=== PATIENT | female | born 1955 ===

== ENCOUNTER → 2024-07-09 | Outpatient (CLI) | payer MEDICARE, BC ==
--- NOTE | 2024-07-13 13:37 | DVHSR ---
APPROVED REPORT EXAM: Two-dimensional and M-mode echocardiogram with Doppler and color Doppler. DIMENSIONS LVDd4.1 (3.8-5.7cm)LA (2D)3.5 (1.9-4.0cm)Aortic Root3.0 (2.0-3.7cm) LVDs2.9 (2.5-4.0cm)LA (MM) (1.9-4.0cm)Aortic Cusp Exc1.7 (1.5-2.0cm) EF (%) 57.0 (55-70%)Rt. Atrium3.7 (1.9-4.0cm)Asc. Aorta3.1 cm IVSd1.0 (0.7-1.1cm)RV (D) (1.8-2.4cm) PWd1.1 (0.7-1.1cm) Mitral Valve MitralMitral Stenosis E wave0.90m/sMV Mean GR.mmHg A wave1.30m/sMV Peak GR.mmHg E/A ratio0.72D MVAcm2 Aortic Valve Aortic ValveAortic Stenosis V11.00m/Bi Mean GR.4mmHg V21.40m/Bi Peak GR.9mmHg LVOT Diameter2.0 (1.8-2.4cm)Doppler AVA2.24cm2 AI P 1/2 Flur987.87ms Pulmonic Valve V20.80m/s LEFT VENTRICLE The left ventricle is normal size. The left ventricle is normal in structure and function. The Ejection Fraction is within normal limits. RIGHT VENTRICLE The right ventricle is normal size. ATRIA The left atrial size is normal. The right atrium size is normal. The interatrial septum is intact with no evidence for an atrial septal defect. MITRAL VALVE The mitral valve is normal in structure. There is no mitral valve regurgitation noted. PULMONIC VALVE The pulmonic valve is not well visualized. TRICUSPID VALVE The tricuspid valve is grossly normal. AORTIC VALVE The aortic valve opens well. There is trace to mild aortic regurgitation. GREAT VESSELS The aortic root is normal size. PERICARDIAL EFFUSION There is no pericardial effusion. Conclusion EF >55%
== END | disposition home or self-care (01) ==
LOC: Rad HDHVI 08:57
PROVIDERS: ATTEND Internal Medicine Cardiovascular Disease
DX: I35.1 Nonrheumatic aortic (valve) insufficiency (principal); R55 Syncope and collapse
CPT/HCPCS: 93306

== ENCOUNTER → 2024-07-19 | Outpatient (CLI) | payer MEDICARE, BC ==
[~2024-07-19] VITALS: Ht 167.6 cm; Wt 85.3 kg
[~2024-07-19] MED LIST: ADENOSINE 72 MG in GIVE UN-DILUTED 0 ML IV ONE; ADENOSINE 90 MG/30 ML INJ IV ONE
== END | disposition home or self-care (01) ==
LOC: Rad HDHVI 13:14
PROVIDERS: ATTEND Internal Medicine Cardiovascular Disease
DX: R06.02 Shortness of breath (principal); R42 Dizziness and giddiness; E78.00 Pure hypercholesterolemia, unspecified; R55 Syncope and collapse
CPT/HCPCS: 78452; 93005; 96374; 96375; A9500; J0153

== ENCOUNTER → 2024-08-24 | Outpatient (CLI) | payer MEDICARE, BC ==
[~2024-08-24] MED LIST changes: -ADENOSINE 72 MG in GIVE UN-DILUTED 0 ML IV ONE; -ADENOSINE 90 MG/30 ML INJ IV ONE; +CHOL50007 PO; +COEN30CA10 PO; +HEPARIN IN NS 1000Units/500mL 1,500 ML ONE; +IOHEXOL 350 MG/ML 100ML IJ ONE; +LEVO112T2 PO; +MAGN400C3 PO; +METO5TAB67 PO; +PANC1CAP PO; +PANT40TA2 PO; +POM PO; +POTA99TA3 PO; +SENN-58 PO; +THIA100T10 PO; +TRIA37.586 PO; +[UNRECOGNIZED DRUG - CODE] PO
[2024-08-24 08:15] VITALS: BP 118/59; PULSE 87; RESP 16; O2SAT 99
[2024-08-24 09:00] VITALS: BP 112/58; PULSE 82; RESP 16; O2SAT 98
--- NOTE | 2024-08-24 14:41 | DVH ---
XY CHEST TWO VIEWS ROUTINE CLINICAL HISTORY: PRE OP/pain COMPARISON: None TECHNIQUE: Frontal and lateral view of the chest was obtained FINDINGS: Lines and Tubes: None Lungs: No focal consolidation. Pleura: No effusion. No pneumothorax. Cardiomediastinal contours: Unremarkable Bones: No acute osseous abnormality. IMPRESSION: No acute cardiopulmonary disease.
== END | disposition home or self-care (01) ==
LOC: Rad HDHVI 08:48
PROVIDERS: ATTEND Internal Medicine Cardiovascular Disease
DX: Z01.818 Encounter for other preprocedural examination (principal); R06.02 Shortness of breath; I42.9 Cardiomyopathy, unspecified
CPT/HCPCS: 71046; 93005; G0463; 36415; 80048; 85025; 85610; 85730

== ENCOUNTER 2024-08-26 06:34 | Day surgery (SDC) | payer MEDICARE, BC ==
[2024-08-24 13:16] LABS: Basophils # (auto) 0.1 10 ^3/uL (0-0.2); Eosinophils # (auto) 0 10 ^3/uL (0-0.8); Eosinophils % (auto) 0.6 % (0.0-7.0); Hematocrit 37.1 % (36.0-46.0); Hemoglobin 12.4 g/dL (12.2-16.2); Lymphocytes # (auto) 1.7 10 ^3/uL (0.4-5.4); Lymphocytes % (auto) 24.1 % (10.0-50.0); Mean Corpuscular Hemoglobin 27.3 pg (28.0-32.0); Mean Corpuscular Hgb Conc. 33.4 g/dL (32.0-36.0); Mean Corpuscular Volume 81.7 fL (80.0-100.0); Monocytes # (auto) 0.5 10 ^3/uL (0-1.3); Monocytes % (auto) 6.7 % (0.0-12.0); Neutrophils # (auto) 4.9 10 ^3/uL (1.6-8.6); Neutrophils % (auto) 67.6 % (37.0-80.0); Nucleated Red Blood Cells % 0.1 %; Platelet Count (auto) 360 10^3/uL (140-450); Red Blood Cells 4.54 10^6/uL (4.0-5.20); Red Cell Distribution Width 13.4 % (11.8-14.3); White Blood Cell 7.2 10^3/uL (4.4-10.8)
[2024-08-24 13:30] LABS: INR 1.04 (0.9-1.15); Partial Thromboplastin Time 27.3 SEC (24.5-34.5)
[2024-08-24 14:44] LABS: Anion Gap 11 (5-15); Carbon Dioxide 26 mmol/L (20-31); Chloride 103 mmol/L (98-107); Potassium 3.7 mmol/L (3.5-5.1); Sodium 140 mmol/L (136-145)
[2024-08-24 14:50] LABS: BUN/Creatinine Ratio 20.5 (10.0-20.0)
[2024-08-24 14:53] LABS: Blood Urea Nitrogen 25 mg/dL (9-23); Calcium 10.8 mg/dL (8.7-10.4); Glucose 188 mg/dL (74-106)
[~2024-08-26] VITALS: Ht 167.6 cm; Wt 77.6 kg
[2024-08-26] VITALS (8 sets, daily range): BP systolic 95–136; BP diastolic 38–63; PULSE 74–87; RESP 13–19; TEMP 97.7; O2SAT 92–97
[~2024-08-26 06:34] MED LIST changes: -HEPARIN IN NS 1000Units/500mL 1,500 ML ONE; -IOHEXOL 350 MG/ML 100ML IJ ONE
[2024-08-26] MEDS ORDERED: MIDAZOLAM HCL 2MG/2ML 2ml VIAL (1mg/ml) ONE (07:58)
[2024-08-26] MEDS ORDERED: fentaNYL CITRATE 100 MCG/2 ML VL ONE (07:58)
[2024-08-26] MEDS ORDERED: ANGIOMAX 250 MG VIAL IV ONE (07:58)
[2024-08-26] MEDS ORDERED: SODIUM CHL 0.9% 0 ML ONE (07:59)
[2024-08-26] MEDS ORDERED: LIDOCAINE 2%HCL (LOCAL ANESTH.) INJ 20ML MDV ONE (07:59)
--- NOTE | 2024-08-26 08:50 | DVHHP ---
ADMIT DATE: 08/26/2024 HISTORY OF PRESENT ILLNESS: A 68-year-old with history of: * Hypertension, diabetes, diabetic neuropathy, vasculopathy, nephropathy. * Hypothyroidism. * History of hyperthyroidism as well. * History of hypertension. PERTINENT MEDICAL HISTORY: Also significant for severe neuropathy as stated above. She is having increasing symptoms of shortness of breath with history of COPD-like symptoms. FAMILY HISTORY: Significant for grandfather with coronary artery disease. REVIEW OF SYSTEMS: She denied prior LA, history of any angioplasty or angiography. No history of CVA. No history of movement disorder. No history of peripheral vascular disease. No history of chronic COPD. She denies any syncopal episode. No melena or hematochezia. No hematemesis or hemoptysis. No hematuria. No bleeding diathesis. No coagulopathy. The patient is having progressive symptoms of shortness of breath, and because of the above presentation and being diabetic, it is felt that the patient should undergo left heart catheterization and right heart catheterization, to rule out pulmonary hypertension or any valvular abnormality. PHYSICAL EXAMINATION: VITAL SIGNS: Blood pressure is 130/85, pulse of 70 and regular, O2 saturation 98% on room air. HEENT: Pupils are reactive. Funduscopic exam shows no AV nicking, no exudates, no papilledema. Extraocular muscles are intact. Sclerae are anicteric. Tympanic membranes are negative. Oral mucosa moist. Posterior pharynx without any exudate. NECK: No JVD appreciated. Carotid pulses are 2+ symmetrical. Normal upstroke and contour. No cervical adenopathy, no supraclavicular adenopathy, no axillary adenopathy. Thyroid is within normal limits. PULMONARY: Clear to auscultation. Tympanic to percussion. No rhonchi, no wheezes, no egophony. CARDIOVASCULAR: Regular rate. ABDOMEN: Obese. Unable to appreciate an organomegaly. Stool guaiac is negative. NEUROLOGIC: The patient is intact. DTRs are 2+ symmetrical. Cranial nerves 2-12 within normal limits. Sensory and motor modalities are intact. ASSESSMENT AND PLAN: Thus, the patient has increasing symptoms of shortness of breath, dyspnea on exertion. Now to undergo the above-mentioned procedure, left and right heart catheterization. Further recommendations after the angiogram. Chaitanya Dinh MD SA/NAYAN/JOCELYNE TID: [id number] RECEIPT: [id number]
--- NOTE | 2024-08-26 08:51 | DVHDS ---
DATE OF DISCHARGE: 08/26/2024 DISCHARGE DIAGNOSES: * The patient with shortness of breath. Coronary angiography revealed patent coronary anatomy with right coronary artery dominance. * Right heart catheterization and Frankford-Citlalli reading failed to demonstrate any significant hemodynamic abnormality. The patient's capillary wedge pressure was 8. LVEDP was 8. The patient's PA pressure was 31/8. At this time, no evidence of pulmonary hypertension. No evidence of any significant coronary artery disease. Furthermore, the patient's LVEF was also normal at 60%. The patient is stable at the time of discharge. DISPOSITION: Home. ACTIVITY: As instructed. DIET: Will be 2 gram sodium diet. Chaitanya Dinh MD SA/BEVERLY TID: [id number] RECEIPT: [id number]
--- NOTE | 2024-08-26 09:06 | DVHOP ---
DATE OF SURGERY: 08/26/2024 PROCEDURES PERFORMED: * Selective left and right coronary angiography. * Ventriculogram. * Right iliac angiography. * Right heart catheterization. * Durkee-Citlalli reading. * Conscious sedation. DESCRIPTION OF PROCEDURE: The patient was prepped and draped in a sterile condition. 1% Xylocaine used to anesthetize the right groin. Using a Cook needle, the right femoral artery was engaged via Seldinger technique, a 6-Cypriot sheath in the right femoral artery. Similarly, a 6-Cypriot sheath was introduced in the right femoral vein. Using a 6-Cypriot balloon-tipped thermodilutional catheter, right-sided pressure tracings were obtained. Using a 6-Cypriot JL4 catheter and 6-Cypriot JR4 catheter, selective left and right coronary angiographies were performed. Using 6-Cypriot pigtail catheter, ventriculogram was done. There were no complications. The patient tolerated the procedure well. RESULTS: * Left main, patent. * The left anterior descending artery without any flow restrictive lesion, rapidly tapering. Otherwise, no discrete lesion. * Right coronary artery nondominant vessel, less than 2 mm in size. * Right coronary artery is a large, dominant vessel, mild intimal irregularity without any flow restrictive lesion. * Left ventricular function is preserved with an estimated EF 60% with an LVEDP of 8 mmHg with no gradient across the aortic valve. Left ventricular systolic pressure of 130. Right heart catheterization showed RA pressure of 5, RV pressure of 33/5, capillary wedge pressure of 8 and PA pressure of 31/8. Thus, the patient with normal coronary anatomy with right coronary artery dominance with preserved EF of 60%. Right heart catheterization failed to demonstrate any significant pulmonary hypertension. At this time, no gradient was noted between the mitral valve. At this time, no further intervention is required. No catheter-based or surgical intervention is warranted. We will continue to follow the patient. Chaitanya Dinh MD SA/NAYAN TID: [id number] RECEIPT: [id number]
== END 2024-08-26 11:03 | disposition home or self-care (01) ==
LOC: CATH 06:34
PROVIDERS: ATTEND Internal Medicine Cardiovascular Disease
DX: R06.02 Shortness of breath (principal); R06.09 Other forms of dyspnea; I10 Essential (primary) hypertension; E11.40 Type 2 diabetes mellitus with diabetic neuropathy, unspecified; E11.21 Type 2 diabetes mellitus with diabetic nephropathy; E03.9 Hypothyroidism, unspecified; Z87.891 Personal history of nicotine dependence; Z88.5 Allergy status to narcotic agent; Z91.012 Allergy to eggs; Z82.49 Family history of ischemic heart disease and other diseases of the circulatory system
CPT/HCPCS: 36415; 80048; 85025; 85610; 85730; 93460; C1760; C1894; J2250; J3010; J7030; 99152

== ENCOUNTER → 2024-09-15 | Outpatient (CLI) | payer MEDICARE, BC ==
[~2024-09-15] MED LIST changes: +IOHEXOL 350 MG/ML 100ML IJ ONE
[2024-09-15 10:50] VITALS: BP 143/62; PULSE 86; RESP 16; O2SAT 98
[2024-09-15 11:05] VITALS: BP 147/63; PULSE 90; RESP 16; O2SAT 98
--- NOTE | 2024-09-15 17:00 | DVH ---
Procedure: CT CHEST WITH CONTRAST 09/15/2024 10:55 AM History: PULMONARY FIBROSIS Comparison: None Technique: After the uneventful administration of contrast intravenously, CT imaging was performed th rough the chest. Coronal and sagittal reformations were performed by the technologist. 3D image postprocessing was performed on a dedicated workstation and images were used for interpretat ion and reporting. Radiation Dose : CT Dose: CTDI volume is 8.13 mGy. Dose-length product is 329.26 mGy*cm Findings: Lower neck: Unremarkable Lungs: No focal consolidation. Heart/Vascular Structures: Vascular calcifications of the aorta. Coronary artery calcifications. Lymph Nodes: No adenopathy Pleura: No pleural effusion or significant pneumothorax. Musculoskeletal: No acute osseous abnormality. Soft tissues: Normal. Upper abdomen: Post cholecystectomy. IMPRESSION: No evidence of acute intrathoracic pathology identified.
== END | disposition home or self-care (01) ==
LOC: Rad HDHVI 10:32
PROVIDERS: ATTEND Internal Medicine Cardiovascular Disease
DX: J84.10 Pulmonary fibrosis, unspecified (principal); I25.10 Atherosclerotic heart disease of native coronary artery without angina pectoris; I70.0 Atherosclerosis of aorta; Z90.49 Acquired absence of other specified parts of digestive tract
CPT/HCPCS: 71260; G0463; Q9967